=== PATIENT | female | born 1985 | race Hispanic/Latino ===

== ENCOUNTER 2021-09-15 14:07 | Inpatient (IN) | payer OTHER ==
[~2021-09-15] VITALS: Ht 152.4 cm; Wt 57.2 kg
[2021-09-15] VITALS (15 sets, daily range): BP systolic 122–174; BP diastolic 72–109
[2021-09-15] MEDS ORDERED: MAGNESIUM SULFATE 40GM/1000ML 1,000 ML IV ONE (14:46)
[2021-09-15] MEDS ORDERED: MAGNESIUM 4GM PREMIX 100ML 100 ML IV ONE (14:46)
[2021-09-15] MEDS ORDERED: LABETALOL 20MG VIAL IV ONE ×2 (14:54→15:00)
[2021-09-15 14:56] LABS: BASOPHILS % (AUTO) 0.3 % (0.0-5.0); EOSINOPHILS % (AUTO) 0.3 % (0.0-8.0); HEMATOCRIT 33.8 % (36-48); MEAN CORPUSCULAR HEMOGLOBIN 28.5 pg (27.0-33.0); MEAN CORPUSCULAR HGB CONC 31.4 g/dL (32.0-36.0); MEAN CORPUSCULAR VOLUME 90.9 fL (79-99); MONOCYTES % (AUTO) 6.7 % (3.0-13.0); NEUTROPHILS % (AUTO) 68.9 % (40.0-77.0); NUCLEATED RED BLOOD CELLS 0.1 % (0.0-0.19); PLATELET COUNT (AUTO) 186 K/uL (130-400); RED BLOOD CELL COUNT(AUTO) 3.72 MIL/uL (4.00-5.50); RED CELL DISTRIBUTION WIDTH 14.2 % (11.0-15.5); WHITE BLOOD COUNT (AUTO) 14.6 K/uL (4.8-10.8)
[2021-09-15 14:57] LABS: APPEARANCE,URINE Clear (CLEAR); BILIRUBIN,URINE Negative (NEGATIVE); COLOR,URINE Yellow (YELLOW); GLUCOSE, URINE (UA) Negative (NEGATIVE); KETONES,URINE Negative (NEGATIVE); LEUKOCYTE ESTERASE ,URINE Trace (NEGATIVE); NITRATE,URINE Negative (NEGATIVE); OCCULT BLOOD,URINE Negative (NEGATIVE); PH,URINE 6.5 (5.0-8.0); PROTEIN,URINE >=1000 mg/dL (NEGATIVE); UROBILINOGEN,URINE 0.2 mg/dL (0.2-1.0)
[2021-09-15] MEDS ORDERED: MAGNESIUM 4GM PREMIX 100ML 100 ML IV SCH (15:00)
[2021-09-15] MEDS ORDERED: CALCIUM GLUC 1GM/10ML VIAL IV PRN (15:00)
[2021-09-15] MEDS ORDERED: MAGNESIUM SULFATE 40GM/1000ML 1,000 ML IV PRN (15:00)
[2021-09-15 15:05] LABS: AMPHET/METH SCREEN,URINE POSITIVE (NEGATIVE); BARBITURATE SCREEN, URINE NEGATIVE (NEGATIVE); BENZODIAZEPINES SCREEN,URINE POSITIVE (NEGATIVE); CANNABINOID SCREEN,URINE NEGATIVE (NEGATIVE); COCAINE SCREEN,URINE POSITIVE (NEGATIVE); OPIATE SCREEN,URINE NEGATIVE (NEGATIVE); PHENCYCLIDINE SCREEN,URINE NEGATIVE (NEGATIVE)
[2021-09-15 15:16] LABS: CREATININE 0.7 mg/dL (0.5-1.5); POTASSIUM 3.7 mmol/L (3.5-5.1)
[2021-09-15 15:18] LABS: INR 0.93 (0.85-1.15); PROTHROMBIN TIME 9.8 SEC (9.6-11.6)
[2021-09-15 15:19] LABS: PARTIAL THROMBOPLASTIN TIME 24.2 SEC (26.3-35.5)
[2021-09-15 15:21] LABS: ALBUMIN 2.1 g/dL (3.5-5.0); BILIRUBIN,TOTAL 0.2 mg/dL (0.2-1.0); TOTAL PROTEIN, SERUM 6.5 g/dL (6.0-8.3); URIC ACID 6.4 mg/dL (2.6-7.2)
[2021-09-15 15:47] LABS: BACTERIA,URINE Few /HPF (None Seen); RBC,URINE 0-1 /HPF (0-1)
[2021-09-15 15:49] LABS: SQUAMOUS EPITHELIAL CELL,UR Few /HPF (0-2)
[2021-09-15 15:51] LABS: MUCUS,URINE Rare LPF (None Seen)
[2021-09-15 15:53] LABS: PLATELET MORPHOLOGY LARGE PLTS PRESENT
[2021-09-15] MEDS ORDERED: DIAZEPAM 5 MG/ML 2 ML SYG IVP PRN (16:30)
[2021-09-15] MEDS ORDERED: LABETALOL 20MG VIAL IV SCH (17:00)
[2021-09-15] MEDS ORDERED: AMPICILLIN 2GM+NS 100ML 100 ML IV SCH (17:00)
[2021-09-15] MEDS ORDERED: CEFAZOLIN SODIUM 1 GM VIAL ONE (17:44)
[2021-09-15] MEDS ORDERED: PHENYLEPHRINE HCL 10 MG/ML 1ML VIAL IV ONE (17:49)
[2021-09-15] MEDS ORDERED: FENTANYL CITRATE PF 50 MCG/1 ML 2ML VIAL ONE (17:50)
[2021-09-15] MEDS ORDERED: MORPHINE PF 100MG/10ML AMP IV ONE (17:50)
[2021-09-15] MEDS ORDERED: NICARDIPINE 25MG INJ IV ONE (17:57)
[2021-09-15] MEDS ORDERED: PORACTANT ALFA 240 MG/3 ML VIAL IH ONE (18:00)
[2021-09-15] MEDS ORDERED: CEFAZOLIN SODIUM 1 GM VIAL IVP PRN (18:00)
[2021-09-15] MEDS ORDERED: PROPOFOL 10 MG/ML 20ML VIAL IV ONE (18:02)
[2021-09-15] MEDS ORDERED: CITRIC ACID/SODIUM CITRATE 30 ML UDCUP ONE (18:05)
[2021-09-15 18:37] LABS: HEMOGLOBIN A1C 5.8 % (4.0-6.0)
[2021-09-15] MEDS ORDERED: ONDANSETRON 4MG INJ ONE (18:38)
[2021-09-15] MEDS ORDERED: PHARMACY COMMUNICATION MISC SCH (20:30)
[2021-09-15] MEDS: AMPICILLIN 1GM+NS 50ML 50 ML IV SCH (20:34)
[2021-09-15 20:55] LABS: BASOPHILS % (AUTO) 0.2 % (0.0-5.0); EOSINOPHILS % (AUTO) 0.1 % (0.0-8.0); HEMATOCRIT 28.4 % (36-48); LYMPHOCYTES % (AUTO) 12.4 % (21.0-51.0); MEAN CORPUSCULAR HEMOGLOBIN 29.2 pg (27.0-33.0); MONOCYTES % (AUTO) 4.4 % (3.0-13.0); NEUTROPHILS % (AUTO) 82.3 % (40.0-77.0); PLATELET COUNT (AUTO) 156 K/uL (130-400); RED BLOOD CELL COUNT(AUTO) 3.12 MIL/uL (4.00-5.50); RED CELL DISTRIBUTION WIDTH 14.3 % (11.0-15.5); WHITE BLOOD COUNT (AUTO) 14.2 K/uL (4.8-10.8)
[2021-09-15] MEDS: FUROSEMIDE 20MG VIAL IV SCH (20:58)
[2021-09-15] MEDS ORDERED: THIAMINE HCL 100 MG/ML 2ML VIAL IVP SCH (21:00)
[2021-09-15 21:04] LABS: CREATININE 0.6 mg/dL (0.5-1.5)
[2021-09-15 21:08] LABS: ALBUMIN 1.8 g/dL (3.5-5.0); BILIRUBIN,TOTAL 0.2 mg/dL (0.2-1.0); MAGNESIUM 3.6 mg/dL (1.80-2.40); TOTAL PROTEIN, SERUM 5.6 g/dL (6.0-8.3)
[2021-09-15] MEDS: NICARDIPINE 50 MG in 0.9% NACL 250ML IV PRN (21:18)
[2021-09-15] MEDS: LACTATED RINGERS 1000ML 1,000 ML IV SCH (22:47)
[2021-09-16] VITALS (66 sets, daily range): BP systolic 117–156; BP diastolic 69–105
[2021-09-16] MEDS: AMPICILLIN 1GM+NS 50ML 50 ML IV SCH ×6 (00:49→20:08)
[2021-09-16] MEDS: FUROSEMIDE 20MG VIAL IV SCH ×3 (04:35→20:07)
[2021-09-16] MEDS: LACTATED RINGERS 1000ML 1,000 ML IV SCH ×3 (07:00→22:30)
[2021-09-16 07:52] LABS: BASOPHILS % (AUTO) 0.2 % (0.0-5.0); EOSINOPHILS % (AUTO) 0.1 % (0.0-8.0); HEMATOCRIT 30.1 % (36-48); LYMPHOCYTES % (AUTO) 12.4 % (21.0-51.0); MEAN CORPUSCULAR HEMOGLOBIN 28.3 pg (27.0-33.0); MEAN CORPUSCULAR HGB CONC 31.6 g/dL (32.0-36.0); MEAN CORPUSCULAR VOLUME 89.6 fL (79-99); MONOCYTES % (AUTO) 4.3 % (3.0-13.0); NEUTROPHILS % (AUTO) 82.4 % (40.0-77.0); PLATELET COUNT (AUTO) 181 K/uL (130-400); RED BLOOD CELL COUNT(AUTO) 3.36 MIL/uL (4.00-5.50); RED CELL DISTRIBUTION WIDTH 13.9 % (11.0-15.5); WHITE BLOOD COUNT (AUTO) 15.4 K/uL (4.8-10.8)
[2021-09-16 08:36] LABS: ALBUMIN 1.6 g/dL (3.5-5.0); BILIRUBIN,TOTAL 0.2 mg/dL (0.2-1.0); CREATININE 0.6 mg/dL (0.5-1.5); MAGNESIUM 2.2 mg/dL (1.80-2.40); POTASSIUM 4.3 mmol/L (3.5-5.1); TOTAL PROTEIN, SERUM 5.6 g/dL (6.0-8.3)
[2021-09-16 08:45] LABS: RAPID PLASMA REAGIN NONREACTIVE (NONREACTIVE)
[2021-09-16] MEDS: OXYTOCIN-LR 20 UNITS/1000 ML 1,000 ML IV SCH ×2 (09:31→09:32)
[2021-09-16] MEDS ORDERED: BISACODYL 10 MG SUPP.RECT RC PRN (10:00)
[2021-09-16] MEDS ORDERED: ACETAMINOPHEN 500 MG TABLET PO PRN (10:00)
[2021-09-16] MEDS ORDERED: IBUPROFEN 600 MG TABLET PO PRN (10:00)
[2021-09-16] MEDS ORDERED: LANOLIN 30GM OINTMENT TP PRN (10:00)
[2021-09-16] MEDS: NICARDIPINE 50 MG in 0.9% NACL 250ML IV PRN ×2 (10:32→22:24)
[2021-09-16] MEDS: DIPH,PERTUSS(ACELL),TET VAC/PF 0.5 ML VIAL IM SCH (10:39)
[2021-09-16] MEDS: MEASLES/MUMPS/RUBELLA VACCINE, LIVE 0.5 ML/VIAL SQ SCH (10:42)
[2021-09-16] MEDS: SIMETHICONE 80 MG TAB.CHEW PO PRN ×2 (13:27→22:30)
[2021-09-16] MEDS: HYDROCODONE/ACETAMINOPHEN 5/325 MG TAB PO PRN ×2 (13:27→20:08)
[2021-09-16] MEDS: DOCUSATE SODIUM 100 MG CAP PO SCH (20:07)
[2021-09-17] VITALS (21 sets, daily range): BP systolic 92–170; BP diastolic 32–104
[2021-09-17] MEDS: AMPICILLIN 1GM+NS 50ML 50 ML IV SCH ×6 (00:33→20:09)
[2021-09-17] MEDS: HYDROCODONE/ACETAMINOPHEN 5/325 MG TAB PO PRN ×3 (04:01→17:26)
[2021-09-17] MEDS: FUROSEMIDE 20MG VIAL IV SCH ×3 (04:14→20:09)
[2021-09-17] MEDS: LACTATED RINGERS 1000ML 1,000 ML IV SCH ×3 (07:00→23:00)
[2021-09-17 07:23] LABS: BASOPHILS % (AUTO) 0.2 % (0.0-5.0); EOSINOPHILS % (AUTO) 0.3 % (0.0-8.0); HEMATOCRIT 29.7 % (36-48); LYMPHOCYTES % (AUTO) 12.3 % (21.0-51.0); MEAN CORPUSCULAR HEMOGLOBIN 29.3 pg (27.0-33.0); MEAN CORPUSCULAR VOLUME 88.7 fL (79-99); MONOCYTES % (AUTO) 5.5 % (3.0-13.0); NEUTROPHILS % (AUTO) 81.2 % (40.0-77.0); PLATELET COUNT (AUTO) 233 K/uL (130-400); RED BLOOD CELL COUNT(AUTO) 3.35 MIL/uL (4.00-5.50); RED CELL DISTRIBUTION WIDTH 14.5 % (11.0-15.5); WHITE BLOOD COUNT (AUTO) 20.3 K/uL (4.8-10.8)
[2021-09-17 07:38] LABS: CREATININE 0.6 mg/dL (0.5-1.5); MAGNESIUM 1.3 mg/dL (1.80-2.40); POTASSIUM 4.2 mmol/L (3.5-5.1)
[2021-09-17] MEDS: DIPH,PERTUSS(ACELL),TET VAC/PF 0.5 ML VIAL IM SCH (08:37)
[2021-09-17] MEDS: MEASLES/MUMPS/RUBELLA VACCINE, LIVE 0.5 ML/VIAL SQ SCH (08:38)
[2021-09-17] MEDS ORDERED: MAGNESIUM 2GM PREMIX 50ML 50 ML IV ONE (08:47)
[2021-09-17] MEDS: DOCUSATE SODIUM 100 MG CAP PO SCH ×2 (08:50→20:09)
[2021-09-17] MEDS: NICARDIPINE 50 MG in 0.9% NACL 250ML IV PRN (08:56)
[2021-09-17] MEDS: NIFEDIPINE ER 30 MG TAB PO SCH (10:59)
[2021-09-17] MEDS: HYDRALAZINE 25MG TABLET PO SCH ×2 (13:06→20:09)
[2021-09-18] VITALS (8 sets, daily range): BP systolic 127–161; BP diastolic 74–89
[2021-09-18] MEDS: AMPICILLIN 1GM+NS 50ML 50 ML IV SCH ×3 (01:32→09:13)
[2021-09-18 04:13] LABS: MEAN CORPUSCULAR HEMOGLOBIN 28.3 pg (27.0-33.0); MEAN CORPUSCULAR HGB CONC 32.3 g/dL (32.0-36.0); MEAN CORPUSCULAR VOLUME 87.5 fL (79-99); RED BLOOD CELL COUNT(AUTO) 3.43 MIL/uL (4.00-5.50); RED CELL DISTRIBUTION WIDTH 14.3 % (11.0-15.5); WHITE BLOOD COUNT (AUTO) 24.1 K/uL (4.8-10.8)
[2021-09-18 04:21] LABS: CREATININE 0.6 mg/dL (0.5-1.5); POTASSIUM 3.9 mmol/L (3.5-5.1)
[2021-09-18] MEDS: FUROSEMIDE 20MG VIAL IV SCH ×3 (04:46→22:15)
[2021-09-18] MEDS: HYDROCODONE/ACETAMINOPHEN 5/325 MG TAB PO PRN (04:48)
[2021-09-18] MEDS: DIPH,PERTUSS(ACELL),TET VAC/PF 0.5 ML VIAL IM SCH (07:58)
[2021-09-18] MEDS: MEASLES/MUMPS/RUBELLA VACCINE, LIVE 0.5 ML/VIAL SQ SCH (07:59)
[2021-09-18] MEDS: NIFEDIPINE ER 30 MG TAB PO SCH (09:13)
[2021-09-18] MEDS: DOCUSATE SODIUM 100 MG CAP PO SCH ×2 (09:13→20:38)
[2021-09-18] MEDS: HYDRALAZINE 25MG TABLET PO SCH ×3 (09:13→20:39)
[2021-09-18] MEDS: LACTATED RINGERS 1000ML 1,000 ML IV SCH (20:07)
[2021-09-18] MEDS: SIMETHICONE 80 MG TAB.CHEW PO PRN (20:38)
[2021-09-18] MEDS: ACETAMINOPHEN WITH CODEINE 1 TAB TAB PO PRN (20:45)
[2021-09-19 03:32] VITALS: BP 134/89
[2021-09-19] MEDS: ACETAMINOPHEN WITH CODEINE 1 TAB TAB PO PRN (03:56)
[2021-09-19] MEDS: FUROSEMIDE 20MG VIAL IV SCH (06:20)
[2021-09-19] MEDS: LACTATED RINGERS 1000ML 1,000 ML IV SCH (06:25)
[2021-09-19 06:55] LABS: BASOPHILS % (AUTO) 0.2 % (0.0-5.0); EOSINOPHILS % (AUTO) 0.2 % (0.0-8.0); LYMPHOCYTES % (AUTO) 11.3 % (21.0-51.0); MEAN CORPUSCULAR HEMOGLOBIN 28.3 pg (27.0-33.0); MEAN CORPUSCULAR HGB CONC 31.4 g/dL (32.0-36.0); MEAN CORPUSCULAR VOLUME 90.3 fL (79-99); MONOCYTES % (AUTO) 4.3 % (3.0-13.0); NEUTROPHILS % (AUTO) 82.9 % (40.0-77.0); PLATELET COUNT (AUTO) 320 K/uL (130-400); RED BLOOD CELL COUNT(AUTO) 3.21 MIL/uL (4.00-5.50); RED CELL DISTRIBUTION WIDTH 14.7 % (11.0-15.5); WHITE BLOOD COUNT (AUTO) 24.8 K/uL (4.8-10.8)
[2021-09-19 07:03] LABS: CREATININE 0.6 mg/dL (0.5-1.5); POTASSIUM 3.8 mmol/L (3.5-5.1)
[2021-09-19 07:25] VITALS: BP 135/89
[2021-09-19] MEDS: NIFEDIPINE ER 30 MG TAB PO SCH (09:48)
[2021-09-19] MEDS: HYDRALAZINE 25MG TABLET PO SCH (09:48)
[2021-09-19] MEDS: DOCUSATE SODIUM 100 MG CAP PO SCH (09:48)
[2021-09-19] MEDS: MEASLES/MUMPS/RUBELLA VACCINE, LIVE 0.5 ML/VIAL SQ SCH (10:00)
[2021-09-19] MEDS: DIPH,PERTUSS(ACELL),TET VAC/PF 0.5 ML VIAL IM SCH (10:00)
[2021-09-19] MEDS ORDERED: HYDR-4153 PO (10:53)
[2021-09-19] MEDS ORDERED: MELA5CAP PO (10:53)
[2021-09-19 11:17] VITALS: BP 142/85
== END 2021-09-19 13:05 | disposition home or self-care (01) | DRG 786 ==
LOC: EDH 14:07 → LDH 14:08 → OBSVTOIN 14:08 → 2CH 19:15 → 4BH 09-17 23:53 → WSH 09-18 17:30
PROVIDERS: ADMIT Obstetrics & Gynecology; ATTEND Obstetrics & Gynecology
PROC: 10D00Z1 Extraction of Products of Conception, Low, Open Approach (ICD-10-PCS; principal; 2021-09-15 18:11)
DX: O16.4 Unspecified maternal hypertension, complicating childbirth (principal); J96.01 Acute respiratory failure with hypoxia; I42.9 Cardiomyopathy, unspecified; I16.9 Hypertensive crisis, unspecified; O99.42 Diseases of the circulatory system complicating childbirth; Z20.822 Contact with and (suspected) exposure to COVID-19; Z3A.37 37 weeks gestation of pregnancy; Z37.0 Single live birth; O14.14 Severe pre-eclampsia complicating childbirth; O99.513 Diseases of the respiratory system complicating pregnancy, third trimester; O99.324 Drug use complicating childbirth; F14.10 Cocaine abuse, uncomplicated
CPT/HCPCS: 36415; 59510; 71045; 76805; 80048; 80053; 80305; 81001; 82728; 83036; 83735; 83880; 84145; 84443; 84484; 84550; 85025; 85027; 85384; 85610; 85651; 85730; 86592; 86701; 86850; 86900; 86901; 87077; 87088; 87186; 87340; 87390; 87635; 90707; 90715; 93005; 93306; 94760; A4344; G0378; J0290; J0690; J1940; J2274; J2370; J2405; J2590; J2704; J3010; J3360; J3411; J3475; J3490; J7050; J7120

== ENCOUNTER 2021-09-25 00:21 | Observation (INO) | payer OTHER ==
[~2021-09-25] VITALS: Ht 152.4 cm; Wt 54.0 kg
[~2021-09-25 00:21] MED LIST: HYDR-4153 PO; MELA5CAP PO
[2021-09-25 01:13] LABS: APPEARANCE,URINE Cloudy (CLEAR); BILIRUBIN,URINE Negative (NEGATIVE); COLOR,URINE Yellow (YELLOW); GLUCOSE, URINE (UA) Negative (NEGATIVE); KETONES,URINE Negative (NEGATIVE); LEUKOCYTE ESTERASE ,URINE Moderate (NEGATIVE); NITRATE,URINE Negative (NEGATIVE); OCCULT BLOOD,URINE Large (NEGATIVE); PH,URINE 6.5 (5.0-8.0); PROTEIN,URINE POS 2+ mg/dL (NEGATIVE)
[2021-09-25 01:21] LABS: AMPHET/METH SCREEN,URINE NEGATIVE (NEGATIVE); BARBITURATE SCREEN, URINE NEGATIVE (NEGATIVE); BENZODIAZEPINES SCREEN,URINE POSITIVE (NEGATIVE); CANNABINOID SCREEN,URINE NEGATIVE (NEGATIVE); COCAINE SCREEN,URINE POSITIVE (NEGATIVE); OPIATE SCREEN,URINE NEGATIVE (NEGATIVE); PHENCYCLIDINE SCREEN,URINE NEGATIVE (NEGATIVE)
[2021-09-25 01:27] LABS: BACTERIA,URINE Moderate /HPF (None Seen); SQUAMOUS EPITHELIAL CELL,UR Moderate /HPF (0-2)
[2021-09-25] MEDS ORDERED: HYDRALAZINE 25MG TABLET PO SCH (01:30)
[2021-09-25] MEDS: LACTATED RINGERS 1000ML 1,000 ML IV SCH ×2 (01:30→14:03)
[2021-09-25] MEDS ORDERED: MAGNESIUM SULFATE 40GM/1000ML 1,000 ML IV ONE (01:32)
[2021-09-25] MEDS ORDERED: MAGNESIUM 4GM PREMIX 100ML 100 ML IV ONE (01:32)
[2021-09-25] MEDS ORDERED: NIFEDIPINE ER 30 MG TAB PO SCH (01:35)
[2021-09-25 02:00] VITALS: BP 182/99
[2021-09-25] MEDS ORDERED: CALCIUM GLUC 1GM/10ML VIAL IV PRN (02:00)
[2021-09-25] MEDS ORDERED: MAGNESIUM 4GM PREMIX 100ML 100 ML IV PRN ×2 (02:00→03:00)
[2021-09-25] MEDS ORDERED: LACTATED RINGERS 1000ML 1,000 ML IV SCH (02:00)
[2021-09-25] MEDS ORDERED: HYDRALAZINE 20MG/ML VIAL IV PRN (02:30)
[2021-09-25 02:41] LABS: BASOPHILS % (AUTO) 0.4 % (0.0-5.0); EOSINOPHILS % (AUTO) 0.8 % (0.0-8.0); HEMATOCRIT 31.6 % (36-48); MEAN CORPUSCULAR HEMOGLOBIN 28.2 pg (27.0-33.0); MEAN CORPUSCULAR HGB CONC 30.4 g/dL (32.0-36.0); MEAN CORPUSCULAR VOLUME 92.7 fL (79-99); MONOCYTES % (AUTO) 7.2 % (3.0-13.0); NEUTROPHILS % (AUTO) 65.1 % (40.0-77.0); RED BLOOD CELL COUNT(AUTO) 3.41 MIL/uL (4.00-5.50); RED CELL DISTRIBUTION WIDTH 15.3 % (11.0-15.5); WHITE BLOOD COUNT (AUTO) 19.1 K/uL (4.8-10.8)
[2021-09-25 02:46] LABS: PLATELET COUNT (AUTO) 721 K/uL (130-400)
[2021-09-25 02:50] LABS: CREATININE 0.6 mg/dL (0.5-1.5); POTASSIUM 3.7 mmol/L (3.5-5.1)
[2021-09-25] MEDS: HYDROCODONE/ACETAMINOPHEN 5/325 MG TAB PO PRN ×2 (02:51→23:56)
[2021-09-25 02:54] LABS: INR 0.96 (0.85-1.15); PROTHROMBIN TIME 10.5 SEC (9.6-11.6)
[2021-09-25 02:55] LABS: ALBUMIN 2.4 g/dL (3.5-5.0); BILIRUBIN,TOTAL 0.1 mg/dL (0.2-1.0); PARTIAL THROMBOPLASTIN TIME 26.7 SEC (26.3-35.5); TOTAL PROTEIN, SERUM 7.7 g/dL (6.0-8.3); URIC ACID 5.1 mg/dL (2.6-7.2)
[2021-09-25] MEDS ORDERED: MAGNESIUM SULFATE 40GM/1000ML 1,000 ML IV PRN (03:00)
[2021-09-25] MEDS ORDERED: ACET-2743 PO (03:58)
[2021-09-25] MEDS ORDERED: HYDR-4153 PO (03:58)
[2021-09-25] MEDS: IBUPROFEN 600 MG TABLET PO PRN ×2 (04:18→11:06)
[2021-09-25] MEDS: FAMOTIDINE 20MG TAB PO SCH ×2 (08:44→21:36)
[2021-09-25] MEDS: HYDRALAZINE 25MG TABLET PO SCH ×3 (08:44→21:36)
[2021-09-25] MEDS: LOSARTAN/HYDROCHLOROTHIAZIDE 50-12.5MG TABLET PO SCH (08:44)
[2021-09-25 11:43] VITALS: BP 131/70
[2021-09-25 16:23] VITALS: BP 121/59
[2021-09-25 19:30] VITALS: BP 120/65
[2021-09-25 21:00] VITALS: BP 120/72
[2021-09-25 23:05] VITALS: BP 130/76
[2021-09-26 04:00] VITALS: BP 125/78
[2021-09-26 04:24] LABS: BASOPHILS % (AUTO) 0.3 % (0.0-5.0); EOSINOPHILS % (AUTO) 0.8 % (0.0-8.0); HEMATOCRIT 31.1 % (36-48); LYMPHOCYTES % (AUTO) 19.6 % (21.0-51.0); MEAN CORPUSCULAR HEMOGLOBIN 28.7 pg (27.0-33.0); MEAN CORPUSCULAR HGB CONC 30.9 g/dL (32.0-36.0); MEAN CORPUSCULAR VOLUME 93.1 fL (79-99); MONOCYTES % (AUTO) 4.9 % (3.0-13.0); RED BLOOD CELL COUNT(AUTO) 3.34 MIL/uL (4.00-5.50); RED CELL DISTRIBUTION WIDTH 15.3 % (11.0-15.5); WHITE BLOOD COUNT (AUTO) 17.3 K/uL (4.8-10.8)
[2021-09-26 04:31] LABS: PLATELET COUNT (AUTO) 798 K/uL (130-400)
[2021-09-26 05:16] LABS: ALBUMIN 2.3 g/dL (3.5-5.0); BILIRUBIN,TOTAL 0.1 mg/dL (0.2-1.0); CREATININE 0.6 mg/dL (0.5-1.5); POTASSIUM 4.1 mmol/L (3.5-5.1); TOTAL PROTEIN, SERUM 7.2 g/dL (6.0-8.3)
[2021-09-26 07:45] VITALS: BP 129/82
[2021-09-26] MEDS ORDERED: HYDR25 PO (09:47)
[2021-09-26] MEDS: FAMOTIDINE 20MG TAB PO SCH (10:02)
[2021-09-26] MEDS: LOSARTAN/HYDROCHLOROTHIAZIDE 50-12.5MG TABLET PO SCH (10:02)
[2021-09-26] MEDS: HYDRALAZINE 25MG TABLET PO SCH (10:02)
[2021-09-26 11:55] VITALS: BP 128/75
== END 2021-09-26 12:35 | disposition home or self-care (01) ==
LOC: EDH 00:21 → LDH 00:22 → EDH 00:49 → WSH 11:40
PROVIDERS: ADMIT Obstetrics & Gynecology; ATTEND Obstetrics & Gynecology
DX: O10.93 Unspecified pre-existing hypertension complicating the puerperium (principal); O99.43 Diseases of the circulatory system complicating the puerperium; I42.9 Cardiomyopathy, unspecified; F19.10 Other psychoactive substance abuse, uncomplicated; F14.10 Cocaine abuse, uncomplicated; O99.325 Drug use complicating the puerperium; O99.53 Diseases of the respiratory system complicating the puerperium; J81.1 Chronic pulmonary edema; Z56.0 Unemployment, unspecified; Z59.7 Insufficient social insurance and welfare support; Z79.899 Other long term (current) drug therapy
CPT/HCPCS: 36415 ×2; 71045; 80053 ×2; 80305; 81001; 84550; 85025 ×2; 85384; 85610; 85730; 86850; 86900; 86901; 87088; 96361; 96365; 96375; 99284; G0378 ×36; J0360; J3475 ×2; 96360